=== PATIENT | male | born 1995 ===

== ENCOUNTER 2018-08-07 15:43 | Emergency (ER) | payer MEDICAID, OTHER ==
[2018-08-07 15:46] VITALS: BP 145/88; PULSE 65; RESP 16; TEMP 98.4; O2SAT 99; BMI 25.1
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
== END 2018-08-07 18:09 | disposition home or self-care (01) ==
LOC: H.ER 15:43
DX: M54.9 Dorsalgia, unspecified (principal); V43.52XA Car driver injured in collision with other type car in traffic accident, initial encounter; Y92.410 Unspecified street and highway as the place of occurrence of the external cause
CPT/HCPCS: 96372; 99284; J1885